=== PATIENT | male | born 1990 | race African-American/Black ===

== ENCOUNTER 2023-06-30 17:19 | Emergency (ER) | payer BC, OTHER ==
[2023-06-30 17:27] VITALS: BP 144/80; PULSE 86; RESP 18; TEMP 98; BMI 28.7
[2023-06-30] MEDS ORDERED: DIPHTH,PERTUSS(ACELL),TET 0.5 ML DISP.SYRIN IM ONE (18:27)
[2023-06-30] MEDS: DIPHTH,PERTUSS(ACELL),TET 0.5 ML DISP.SYRIN IM ONE (18:30)
== END 2023-06-30 18:32 | disposition home or self-care (01) ==
LOC: JERFT 17:19
PROC: 0HQGXZZ Repair Left Hand Skin, External Approach (ICD-10-PCS; principal; 2023-06-30)
PROC: 3E0234Z Introduction of Serum, Toxoid and Vaccine into Muscle, Percutaneous Approach (ICD-10-PCS; 2023-06-30)
DX: S61.217A Laceration without foreign body of left little finger without damage to nail, initial encounter (principal); W26.0XXA Contact with knife, initial encounter
CPT/HCPCS: 90715; 99282-25

== ENCOUNTER 2024-11-12 20:07 | Emergency (ER) | payer BC ==
[2024-11-12 20:24] VITALS: BP 125/64; PULSE 63; RESP 20; TEMP 98.3; BMI 29.3
== END 2024-11-12 21:30 | disposition home or self-care (01) ==
LOC: JER 20:07
DX: R04.0 Epistaxis (principal); K92.1 Melena
CPT/HCPCS: 99283-25